=== PATIENT | male | born 1945 | race Two or more races ===

== ENCOUNTER → 2022-08-02 | Outpatient (CLI) | payer OTHER | END | disposition home or self-care (01) | LOC: NUCLEAR 07:00 | PROVIDERS: ATTEND Internal Medicine Hematology & Oncology | DX: C88.4 Extranodal marginal zone B-cell lymphoma of mucosa-associated lymphoid tissue [MALT-lymphoma] (principal); C85.96 Non-Hodgkin lymphoma, unspecified, intrapelvic lymph nodes; Q93 Monosomies and deletions from the autosomes, not elsewhere classified; R16.1 Splenomegaly, not elsewhere classified | CPT/HCPCS: 78815; A9552 ==

== ENCOUNTER 2024-11-11 20:45 | Inpatient (IN) | payer OTHER ==
[~2024-11-11] VITALS: Ht 233.7 cm; Wt 98.9 kg
[2024-11-11] MEDS ORDERED: ATORVASTATIN CA20 MG PO (21:09)
[2024-11-11] MEDS ORDERED: FENOFIBRATE50 MG PO (21:10)
[2024-11-11] MEDS ORDERED: MEMANTINE H2 MG/1 ML PO (21:10)
[2024-11-11] MEDS ORDERED: TOPROL XL100 M1 PO (21:10)
[2024-11-11] MEDS ORDERED: FINASTERIDE5 MG PO (21:10)
--- NOTE | 2024-11-11 21:11 | NUR ---
SE RECIBE PACIENTE ALERTA Y CONCIENTE X2 ACOMPANADO DE SAWYER HIJA. LA MISMA REFIERE QUE EL PACIENTE TIENE DIARREA DESDE EL HARSHAD DE HOY Y QUE ESTA DESORIENTADO. SE PROCEDE A KAMRAN S/V AL PACIENTE Y SE UBICA EN CAMA 12 CON BARANDAS ELEVADAS Y NIVEL MAS BAJO DE MICHELLE.
[2024-11-11] MEDS ORDERED: 0.9 % SODIUM CHLORIDE 1,000 ML IV ONE (23:00)
[2024-11-12 01:42] LABS: BASO % 0.4 % (0.1-1.2); HEMOGLOBIN 12.6 g/dL (13.7-17.5)
[2024-11-12 02:11] LABS: INR 1.18; PARTIAL THROMBOPLASTIN TIME 23.6 SECONDS (22.0-34.0); PROTHROMBIN TIME 12.7 SECONDS (9.0-11.5)
[2024-11-12 02:13] LABS: EOS % 2.2 % (0.7-7.0); HEMATOCRIT 38.1 % (40.1-51.0); LYMPH # 4.96 (1.18-3.74); LYMPH % 53.4 % (19.3-53.1); MEAN CORPUSCULAR HEMOGLOBIN 27.5 pg (25.6-32.2); MONO # 0.66 (0.24-0.82); MONO % 7.1 % (4.7-12.5); NEUT # 3.35 (1.56-6.13); PLATELET COUNT 267 K/uL (163-369); RED BLOOD COUNT 4.58 M/uL (4.63-6.08); RED CELL DISTRIBUTION WIDTH 13.7 % (11.6-14.4)
[2024-11-12 02:15] LABS: ALBUMIN 3.4 gm/dL (3.4-5.0); BILIRUBIN TOTAL 0.6 mg/dL (0.3-1.2); CALCIUM 9.6 mg/dL (8.5-10.1); CREATININE SERUM 1.3 mg/dL (0.70-1.30); GFR 52.98; GLOBULINA 3.9 G/DL (2.4-3.5); POTASSIUM 4.84 mEq/L (3.5-5.1); TOTAL PROTEIN 7.3 gm/dL (6.4-8.2)
[2024-11-12 03:34] LABS: URINE APPEARANCE Clear; URINE BILIRRUBIN Negative (NEGATIVE); URINE BLOOD Negative; URINE COLOR Dark Yellow; URINE GLUCOSE Negative (NEGATIVE); URINE KETONE Trace (NEGATIVE); URINE LEUKOCYTE Moderate; URINE NITRATE Negative; URINE PROTEIN Trace (NEGATIVE); URINE UROBILINOGEN 0.2 E.U./dl
[2024-11-12 03:42] LABS: URINE BACTERIA 232.5 uL (0.0-1933); URINE CAST 1.61 uL (0.0-1.40); URINE EPITHELIAL CELLS 13.1 uL (0.0-38.8); URINE RBC 8.1 uL (0.0-20.8); URINE WBC 137.3 uL (0.0-23.2)
--- NOTE | 2024-11-12 03:45 | NUR ---
PTE EVALUADO POR EL DR, KRYSTAL QUIEN ORENA TRATAMIENTO LA CUAL SE EJECUTA . SE MANTIENE BAJO OBSERVACION.
--- NOTE | 2024-11-12 07:24 | NUR ---
PTE EN MICHELLE EN POSICION SEMI SENTADA EN MICHELLE CON BARANDAS ELEVADAS POR SAWYER SEGURIDAD. PTE AL MOMENTO SE ENCUENTRA DURMIENDO EN COMPANIA DE SAWYER FAMILIAR. PTE CON CANALIZACION AREA DC DE EDEMA Y ENROJECIMIENTO.
[2024-11-12] MEDS ORDERED: PANTOPRAZOLE SODIUM 40 MG/VIAL VIAL IV PUSH SCH (08:34)
[2024-11-12] MEDS ORDERED: ONDANSETRON HCL 2 MG/ML VIAL IV PRN (08:45)
[2024-11-12] MEDS ORDERED: 0.9 % SODIUM CHLORIDE 1,000 ML IV SCH (08:45)
[2024-11-12] MEDS ORDERED: ACETAMINOPHEN 500 MG GEL..CAP PO PRN (08:45)
[2024-11-12] MEDS ORDERED: RIVAROXABAN 10 MG TAB PO SCH (09:00)
[2024-11-12] MEDS ORDERED: CIPROFLOXACIN IN 5 % DEXTROSE 200 ML IV SCH (09:00)
[2024-11-12] MEDS ORDERED: METRONIDAZOLE/SODIUM CHLORIDE 100 ML IV SCH (13:00)
[2024-11-12] MEDS ORDERED: CIPROFLOXACIN IN 5 % DEXTROSE 400 MG/200 ML PIGGYBAG IV ONE (13:32)
[2024-11-12] MEDS ORDERED: METRONIDAZOLE/SODIUM CHLORIDE 500 MG/100 ML PIGGYBACK IV ONE (13:32)
[2024-11-12 15:12] VITALS: BP 164/75; O2SAT 97
[2024-11-12 20:13] VITALS: BP 171/87
[2024-11-13 02:36] VITALS: BP 164/79; O2SAT 94
[2024-11-13 07:00] LABS: BASO % 0.6 % (0.1-1.2); EOS # 0.32 (0.04-0.54); EOS % 4.9 % (0.7-7.0); HEMATOCRIT 36.5 % (40.1-51.0); HEMOGLOBIN 11.8 g/dL (13.7-17.5); LYMPH # 2.69 (1.18-3.74); LYMPH % 41.1 % (19.3-53.1); MEAN CORPUSCULAR HEMOGLOBIN 26.9 pg (25.6-32.2); MONO # 0.56 (0.24-0.82); MONO % 8.6 % (4.7-12.5); NEUT # 2.87 (1.56-6.13); NEUT % 43.9 % (34.0-71.1); PLATELET COUNT 234 K/uL (163-369); RED BLOOD COUNT 4.39 M/uL (4.63-6.08); RED CELL DISTRIBUTION WIDTH 13.5 % (11.6-14.4)
[2024-11-13 07:22] LABS: CALCIUM 8.5 mg/dL (8.5-10.1); CREATININE SERUM 1.02 mg/dL (0.70-1.30); GFR 70.09; POTASSIUM 4.32 mEq/L (3.5-5.1)
[2024-11-13 07:26] LABS: C-REACTIVE PROTEIN 0.35 MG/DL (0.00-0.29)
[2024-11-13 09:03] VITALS: BP 148/75; O2SAT 99
[2024-11-13] MEDS ORDERED: IRBESARTAN 150 MG TABLET PO NR (15:30)
[2024-11-13] MEDS ORDERED: METOPROLOL SUCCINATE 100 MG TAB.SR.24H PO NR (15:30)
[2024-11-13] MEDS ORDERED: CLOPIDOGREL BISULFATE 75 MG TABLET PO SCH (15:30)
[2024-11-13] MEDS ORDERED: MEMANTINE HCL 10 MG TABLET PO SCH (17:00)
[2024-11-13] MEDS ORDERED: DONEPEZIL HCL 10 MG TABLET PO SCH (17:00)
[2024-11-13 18:56] VITALS: BP 175/85
[2024-11-14 08:51] VITALS: BP 156/75; O2SAT 97
[2024-11-14] MEDS ORDERED: ATORVASTATIN CALCIUM 20 MG TABLET PO SCH (09:00)
[2024-11-14] MEDS ORDERED: CLOPIDOGREL BISULFATE 75 MG TABLET PO SCH (09:00)
[2024-11-14] MEDS ORDERED: METOPROLOL SUCCINATE 100 MG TAB.SR.24H PO SCH (09:00)
[2024-11-14] MEDS ORDERED: IRBESARTAN 150 MG TABLET PO SCH (09:00)
[2024-11-14 18:48] VITALS: BP 149/59
[2024-11-15 01:51] VITALS: BP 155/73; O2SAT 97
[2024-11-15 07:00] VITALS: BP 153/74; O2SAT 95
[2024-11-15] MEDS ORDERED: LACTOBACILLUS ACIDOPHILUS 1 CAP CAP PO SCH (17:00)
[2024-11-15 17:23] LABS: CALCIUM 8.5 mg/dL (8.5-10.1); CREATININE SERUM 1.07 mg/dL (0.70-1.30); GFR 66.33; POTASSIUM 4.22 mEq/L (3.5-5.1)
[2024-11-15 18:19] VITALS: BP 149/76; O2SAT 98
[2024-11-16 01:46] VITALS: BP 156/76; O2SAT 96
[2024-11-16 07:00] VITALS: BP 153/72; O2SAT 92
[2024-11-16 16:00] VITALS: BP 153/66; O2SAT 96
[2024-11-17 02:14] VITALS: BP 155/75; O2SAT 96
[2024-11-17 10:17] VITALS: BP 133/70; O2SAT 97
[2024-11-17] MEDS ORDERED: CLOPIDOGREL BIS75 MG PO (13:02)
[2024-11-17] MEDS ORDERED: ARICEPT10 MG PO (13:02)
[2024-11-17] MEDS ORDERED: MEMANTINE HCL10 MG PO (13:03)
[2024-11-17] MEDS ORDERED: TOPROL XL100 M1 PO (13:03)
[2024-11-17] MEDS ORDERED: LIPITOR20 MG PO (13:03)
[2024-11-17] MEDS ORDERED: AVAPRO150 MG PO (13:03)
[2024-11-17] MEDS ORDERED: XARELTO10 MG PO (13:03)
[2024-11-17] MEDS ORDERED: INTESTINEX680 M1 PO (13:04)
== END 2024-11-17 13:43 | disposition home or self-care (01) | DRG 641 ==
LOC: ER 20:45 → MEDJ 11-12 08:55 → SEC-K 11-12 08:55 → MEDJ 11-12 10:22
PROVIDERS: General Practice; ADMIT Internal Medicine; ATTEND Internal Medicine
PROC: BW28ZZZ Computerized Tomography (CT Scan) of Head (ICD-10-PCS; principal; 2024-11-11)
PROC: B030ZZZ Magnetic Resonance Imaging (MRI) of Brain (ICD-10-PCS; 2024-11-13)
PROC: B345ZZZ Ultrasonography of Bilateral Common Carotid Arteries (ICD-10-PCS; 2024-11-13)
PROC: 4A12X4Z Monitoring of Cardiac Electrical Activity, External Approach (ICD-10-PCS; 2024-11-13)
DX: E86.0 Dehydration (principal); R41.0 Disorientation, unspecified; I10 Essential (primary) hypertension; E78.49 Other hyperlipidemia; G30.9 Alzheimer's disease, unspecified; F02.80 Dementia in other diseases classified elsewhere, unspecified severity, without behavioral disturbance, psychotic disturbance, mood disturbance, and anxiety; R19.7 Diarrhea, unspecified; E03.9 Hypothyroidism, unspecified
CPT/HCPCS: 70544